=== PATIENT | female | born 1990 | race Caucasian/White ===

== ENCOUNTER 2025-08-06 09:30 | Outpatient (CLI) | payer MEDICAID, SELFPAY ==
--- NOTE | 2025-08-06 09:37 | NM_ITS ---
PROCEDURE: NM/Parathyroid Scan
== END 2025-08-06 23:59 | disposition home or self-care (01) ==
LOC: NM 09:33
PROVIDERS: PCP Family Medicine; Referring Provider Physician Assistant; Visit Provider Physician Assistant
DX: E21.2 Other hyperparathyroidism (principal); E55.9 Vitamin D deficiency, unspecified
CPT/HCPCS: 78070; A9500